=== PATIENT | male | born 1970 | race Caucasian/White ===

== ENCOUNTER 2016-03-15 12:32 | Emergency (ER) | payer MEDICARE, MEDICAID ==
[2016-03-15 12:45] VITALS: BMI 40.7
[2016-03-15 13:41] LABS: BLOOD UREA NITROGEN 8 MG/DL (9-20); CALCIUM 8.8 MG/DL (8.4-10.2); CALCULATED OSMOLALITY 255 MOs/Kg (270-290); CHLORIDE 93 mEq/L (98-107); GLUCOSE 118 MG/DL (70-99); SODIUM LEVEL 133 mEq/L (137-146); TOTAL PROTEIN 7.9 G/DL (6.3-8.2)
[2016-03-15 13:44] LABS: PARTIAL THROMB. TIME 25.3 SEC (22-35)
[2016-03-15 13:54] LABS: SEG NEUTROPHIL 66 % (45-76)
--- NOTE | 2016-03-15 14:18 | DIRPT ---
CLINICAL DATA: Seizure EXAM: PORTABLE CHEST 1 VIEW COMPARISON: 01/05/2014 FINDINGS: Normal heart size. Lungs are very under aerated and grossly clear. No pneumothorax. IMPRESSION: No active disease. Electronically Signed By: Ziyad Villatoro M.D. On: 03/15/2016 14:16
--- NOTE | 2016-03-15 14:26 | EDPRACDOC ---
<CrowCurt Fransico - Last Filed: 03/15/16 15:19> - General Information Information Source: Patient, Family Mode Of Arrival: Car - History of Present Illness Onset: Today HPI: Patient reports he started with a headache last night, has a hx of migraines, went to congregation this AM - felt very sick, had one episode of nausea/vomiting. States he had a seizure shortly after the nausea/vomiting episode. Patient denies being injured - he was sitting when he had his seizure. Patient reports bilateral upper back pain after a fall last week on the ice, denies CP, SOB, fever, chills, ear pain or sore throat. Patient has had cough/congestion this weekend as well. No abdominal pain, no neck pain. Location: Reports: Generalized Pain Quality: Reports: Mild Modifying Factors: improves with: Rest Associated Signs and Symptoms: Reports: Occasional Headache, Nausea/Vomiting, Seizures. Denies: Confusion, Facial Pain, Loss of Consciousness, Nasal Drainage , Sinus Infection, Stiff Neck, Vision Changes, Weakness <Mariely Bear - Last Filed: 03/15/16 15:25> - General Information Chief Complaint: Headache Stated Complaint: SEIZURES ROLON VOMITING Time Seen by Provider: 03/15/16 13:41 Home Medications: Home Medications Carbamazepine [Tegretol] 400 mg PO QID 01/19/13 Divalproex Sodium [Depakote ER] 1,000 mg PO QID 01/19/13 Lacosamide [Vimpat] 100 mg PO BID 01/19/13 Amoxicillin/Potassium Clav [Augmentin 875-125 Tablet] 1 each PO BID #20 tablet 03/15/16 Ondansetron HCl [Zofran] 4 mg PO Q8H PRN #15 tab 03/15/16 Allergies/Adverse Reactions: Allergies Allergy/AdvReac Type Severity Reaction Status Date / Time methylphenidate HCl Allergy Intermediate See Verified 03/15/16 12:45 [From Ritalin] Comments topiramate [From Topamax] Allergy Dizziness Verified 03/15/16 12:45 ED Past Medical History - History Reviewed Yes Nurses notes reviewed and agree except as marked - Patient Medical History Neurological History: Reports: Seizures (01/12/14 [facility]), Epilepsy Psychological History: Denies: Depression Systemic History: Denies: Cancer - Family Medical History Reports: Hypertension (PARENTS), Diabetes (PARENTS), Stroke (MOTHER), Cardiac Disorders (MOTHER) - Social Medical History Smoking Status: Never smoker ETOH: None Substance Abuse: None Lives In: Home <Mariely Bear - Last Filed: 03/15/16 15:25> EDM Review of Systems - Review of Systems ROS Negative Except as Marked: Yes All systems reviewed and were negative except as marked Constitutional: No Symptoms Reported Eyes: No Symptoms Reported Ears: No Symptoms Reported Throat: No Symptoms Reported Nose: No Symptoms Reported Mouth: No Symptoms Reported Respiratory: No Symptoms Reported Cardiovascular: No Symptoms Reported Gastrointestinal: Nausea, Vomiting Genitourinary: No Symptoms Reported Neurological: Headache, Seizure. negative: Dizziness, Numbness, Speech Difficulty, Weakness Musculoskeletal: Back <Mariely Bear - Last Filed: 03/15/16 15:25> - Physical Exam Last recorded Vital Signs: Last Vital Signs Temp 97.1 F L 03/15/16 12:39 Pulse 58 L 03/15/16 12:44 Resp 18 03/15/16 12:44 BP 156/81 03/15/16 12:44 Pulse Ox 97 03/15/16 12:44 Oxygen Pulse Oxygen Saturation 97 O2 Device Oxygen Flow Rate Fraction of Inspired Oxygen ( FIO2) <Curt Maria - Last Filed: 03/15/16 15:19> - Physical Exam Constitutional: Alert (Awake), No apparent distress Oriented to: Time, Person, Place Last recorded Vital Signs: Last Vital Signs Temp 97.1 F L 03/15/16 12:39 Pulse 58 L 03/15/16 12:44 Resp 18 03/15/16 12:44 BP 156/81 03/15/16 12:44 Pulse Ox 97 03/15/16 12:44 Oxygen Pulse Oxygen Saturation 97 O2 Device Oxygen Flow Rate Fraction of Inspired Oxygen ( FIO2) - HEENT Head: Normal ( normocephalic) Eye Exam: Normal (PERRL, EOMI, Sclera white) Oropharynx: Normal (Pharynx:Moist without exudate,Gums-no swelling) Nose: No Symptoms Reported (septum midline) Neck: Normal (FROM, trachea at midline) - Respiratory/Cardiovascular Respiratory: Normal - CTA (BBS clear to auscultation without adventitious sounds ) Cardiovascular: Normal (RRR without murmur, gallop or rub) - GI Auscultation: Normal (NABS) Tenderness: Non tender - Musculoskeletal Back: Normal (Non-Tender) Extremities: Normal (Normal tone, Pulses 2+ No cyanosis or edema, FROM) - Integumentary Skin: Normal, Warm, Dry Lymphatics: Normal (no adenopathy) - Neurologic Memory Impaired: Normal Motor Function: Normal (Normal tone, Pulses 2+ No cyanosis or edema, FROM) Mood Description: Normal Thought: Coherent <Mariely Bear M - Last Filed: 03/15/16 15:25> - Results 03/15/16 13:15 03/15/16 13:15 WBC 15.7 xk/uL (3.8-10.8) H 03/15/16 13:15 RBC 5.20 xM/uL (4.70-6.10) 03/15/16 13:15 Hgb 16.4 g/dL (14.0-18.0) 03/15/16 13:15 Hct 47.8 % (42-52) 03/15/16 13:15 MCV 92 fL (80-94) 03/15/16 13:15 MCH 31.5 pg (27-32) 03/15/16 13:15 MCHC 34.2 g/dl (33-36) 03/15/16 13:15 RDW 13.5 % (11.5-14.5) 03/15/16 13:15 Plt Count 366 xk/uL (130-400) 03/15/16 13:15 MPV 8.0 fL (7.4-10.4) 03/15/16 13:15 Neut % (Auto) Cancelled 03/15/16 13:15 Lymph % (Auto) Cancelled 03/15/16 13:15 [place] % (Auto) Cancelled 03/15/16 13:15 Eos % (Auto) Cancelled 03/15/16 13:15 Baso % (Auto) Cancelled 03/15/16 13:15 Absolute Neuts (auto) Cancelled 03/15/16 13:15 Absolute Lymphs (auto) Cancelled 03/15/16 13:15 Seg Neuts % (Manual) 66 % (45-76) 03/15/16 13:15 Band Neutrophils % 3 % (0-5) 03/15/16 13:15 Lymphocytes % (Manual) 19 % (17-44) 03/15/16 13:15 Monocytes % (Manual) 12 % (0-10) H 03/15/16 13:15 Absolute Neutrophils 10.83 xk/uL (1.7-8.2) H 03/15/16 13:15 Absolute Lymphocytes 2.98 xk/uL (0.65-4.75) 03/15/16 13:15 Atypical Lymphocytes Occ 03/15/16 13:15 Platelet Estimate Norm (NORMAL) 03/15/16 13:15 RBC Morphology Norm 03/15/16 13:15 PT 10.0 SEC (9.2-11.2) 03/15/16 13:15 INR 1.0 03/15/16 13:15 APTT 25.3 SEC (22-35) 03/15/16 13:15 Sodium 133 mEq/L (137-146) L 03/15/16 13:15 Potassium 3.7 mEq/L (3.5-5.1) 03/15/16 13:15 Chloride 93 mEq/L (98-107) L 03/15/16 13:15 Carbon Dioxide 26 mMOL/L (22-33) 03/15/16 13:15 Anion Gap 18 mEq/L (8-16) H 03/15/16 13:15 BUN 8 MG/DL (9-20) L 03/15/16 13:15 Creatinine 0.60 MG/DL (0.66-1.25) L 03/15/16 13:15 Estimated GFR (MDRD) > 60 mL/min (>=60) 03/15/16 13:15 Glucose 118 MG/DL (70-99) H 03/15/16 13:15 Calculated Osmolality 255 MOs/Kg (270-290) L 03/15/16 13:15 Calcium 8.8 MG/DL (8.4-10.2) 03/15/16 13:15 Total Bilirubin 0.4 MG/DL (0.2-1.3) 03/15/16 13:15 AST 32 IU/L (17-59) 03/15/16 13:15 ALT 23 IU/L (21-72) 03/15/16 13:15 Alkaline Phosphatase 85 IU/L (38-126) 03/15/16 13:15 Troponin I < 0.01 ng/mL (<.04) 03/15/16 13:15 Total Protein 7.9 G/DL (6.3-8.2) 03/15/16 13:15 Albumin 4.3 G/DL (3.5-5.0) 03/15/16 13:15 Valproic Acid 101.0 MCG/ML (50-100) H 03/15/16 13:15 Lab Results 03/15/16 03/15/16 03/15/16 13:15 13:15 13:15 WBC 15.7 H RBC 5.20 Hgb 16.4 Hct 47.8 MCV 92 MCH 31.5 MCHC 34.2 RDW 13.5 Plt Count 366 MPV 8.0 Neut % (Auto) Cancelled Lymph % (Auto) Cancelled [place] % (Auto) Cancelled Eos % (Auto) Cancelled Baso % (Auto) Cancelled Absolute Neuts (auto) Cancelled Absolute Lymphs (auto) Cancelled Seg Neuts % (Manual) 66 Band Neutrophils % 3 Lymphocytes % (Manual) 19 Monocytes % (Manual) 12 H Absolute Neutrophils 10.83 H Absolute Lymphocytes 2.98 Atypical Lymphocytes Occ Platelet Estimate Norm RBC Morphology Norm PT 10.0 INR 1.0 APTT 25.3 Sodium 133 L Potassium 3.7 Chloride 93 L Carbon Dioxide 26 Anion Gap 18 H BUN 8 L Creatinine 0.60 L Estimated GFR (MDRD) > 60 Glucose 118 H Calculated Osmolality 255 L Calcium 8.8 Total Bilirubin 0.4 AST 32 ALT 23 Alkaline Phosphatase 85 Troponin I < 0.01 Total Protein 7.9 Albumin 4.3 Valproic Acid 101.0 H - Additional Information MD NOTE SEEN AND EXAMINED; NO NECK PAIN WITH FLEXION. COLD AND COUGH FOR A WEEK. SEIZURE EARLIER. HX OF SAME BEFORE AND ON MEDS. <Curt Maria - Last Filed: 03/15/16 15:19> - Re-evaluation Re-evaluation 1 Re-evaluation Time: 15:14 Re-evaluation: Discussed results with patient, negative CT scan and CXR - sinusitis. Bloodwork unremarkable. Patient without CP, SOB, patient has had upper back pain since a fall 1 wk ago, good ROM, slight pain with palpation. - Results 03/15/16 13:15 03/15/16 13:15 WBC 15.7 xk/uL (3.8-10.8) H 03/15/16 13:15 RBC 5.20 xM/uL (4.70-6.10) 03/15/16 13:15 Hgb 16.4 g/dL (14.0-18.0) 03/15/16 13:15 Hct 47.8 % (42-52) 03/15/16 13:15 MCV 92 fL (80-94) 03/15/16 13:15 MCH 31.5 pg (27-32) 03/15/16 13:15 MCHC 34.2 g/dl (33-36) 03/15/16 13:15 RDW 13.5 % (11.5-14.5) 03/15/16 13:15 Plt Count 366 xk/uL (130-400) 03/15/16 13:15 MPV 8.0 fL (7.4-10.4) 03/15/16 13:15 Neut % (Auto) Cancelled 03/15/16 13:15 Lymph % (Auto) Cancelled 03/15/16 13:15 [place] % (Auto) Cancelled 03/15/16 13:15 Eos % (Auto) Cancelled 03/15/16 13:15 Baso % (Auto) Cancelled 03/15/16 13:15 Absolute Neuts (auto) Cancelled 03/15/16 13:15 Absolute Lymphs (auto) Cancelled 03/15/16 13:15 Seg Neuts % (Manual) 66 % (45-76) 03/15/16 13:15 Band Neutrophils % 3 % (0-5) 03/15/16 13:15 Lymphocytes % (Manual) 19 % (17-44) 03/15/16 13:15 Monocytes % (Manual) 12 % (0-10) H 03/15/16 13:15 Absolute Neutrophils 10.83 xk/uL (1.7-8.2) H 03/15/16 13:15 Absolute Lymphocytes 2.98 xk/uL (0.65-4.75) 03/15/16 13:15 Atypical Lymphocytes Occ 03/15/16 13:15 Platelet Estimate Norm (NORMAL) 03/15/16 13:15 RBC Morphology Norm 03/15/16 13:15 PT 10.0 SEC (9.2-11.2) 03/15/16 13:15 INR 1.0 03/15/16 13:15 APTT 25.3 SEC (22-35) 03/15/16 13:15 Sodium 133 mEq/L (137-146) L 03/15/16 13:15 Potassium 3.7 mEq/L (3.5-5.1) 03/15/16 13:15 Chloride 93 mEq/L (98-107) L 03/15/16 13:15 Carbon Dioxide 26 mMOL/L (22-33) 03/15/16 13:15 Anion Gap 18 mEq/L (8-16) H 03/15/16 13:15 BUN 8 MG/DL (9-20) L 03/15/16 13:15 Creatinine 0.60 MG/DL (0.66-1.25) L 03/15/16 13:15 Estimated GFR (MDRD) > 60 mL/min (>=60) 03/15/16 13:15 Glucose 118 MG/DL (70-99) H 03/15/16 13:15 Calculated Osmolality 255 MOs/Kg (270-290) L 03/15/16 13:15 Calcium 8.8 MG/DL (8.4-10.2) 03/15/16 13:15 Total Bilirubin 0.4 MG/DL (0.2-1.3) 03/15/16 13:15 AST 32 IU/L (17-59) 03/15/16 13:15 ALT 23 IU/L (21-72) 03/15/16 13:15 Alkaline Phosphatase 85 IU/L (38-126) 03/15/16 13:15 Troponin I < 0.01 ng/mL (<.04) 03/15/16 13:15 Total Protein 7.9 G/DL (6.3-8.2) 03/15/16 13:15 Albumin 4.3 G/DL (3.5-5.0) 03/15/16 13:15 Valproic Acid 101.0 MCG/ML (50-100) H 03/15/16 13:15 Lab Results 03/15/16 03/15/16 03/15/16 13:15 13:15 13:15 WBC 15.7 H RBC 5.20 Hgb 16.4 Hct 47.8 MCV 92 MCH 31.5 MCHC 34.2 RDW 13.5 Plt Count 366 MPV 8.0 Neut % (Auto) Cancelled Lymph % (Auto) Cancelled [place] % (Auto) Cancelled Eos % (Auto) Cancelled Baso % (Auto) Cancelled Absolute Neuts (auto) Cancelled Absolute Lymphs (auto) Cancelled Seg Neuts % (Manual) 66 Band Neutrophils % 3 Lymphocytes % (Manual) 19 Monocytes % (Manual) 12 H Absolute Neutrophils 10.83 H Absolute Lymphocytes 2.98 Atypical Lymphocytes Occ Platelet Estimate Norm RBC Morphology Norm PT 10.0 INR 1.0 APTT 25.3 Sodium 133 L Potassium 3.7 Chloride 93 L Carbon Dioxide 26 Anion Gap 18 H BUN 8 L Creatinine 0.60 L Estimated GFR (MDRD) > 60 Glucose 118 H Calculated Osmolality 255 L Calcium 8.8 Total Bilirubin 0.4 AST 32 ALT 23 Alkaline Phosphatase 85 Troponin I < 0.01 Total Protein 7.9 Albumin 4.3 Valproic Acid 101.0 H - EKG EKG #1 EKG Time: 13:26 -: Yes EKG interpreted by me Rate: bpm: 54 Rhythm: SB Block: RBBB (Incomplete) ST: Nonsp <Mariely Bear - Last Filed: 03/15/16 15:25> <Curt Maria - Last Filed: 03/15/16 15:19> Decision Time to Discharge: 15:18 - Departure Disposition: Home Education/Counseling Given To: Patient, Family Member Education/Counseling Given Regarding: Diagnosis, Treatment, Prognosis, Follow Up <Mariely Bear - Last Filed: 03/15/16 15:25> - Departure Condition: Stable Final Diagnosis: Seizure Headache Qualifiers: Headache type: other headache syndrome Qualified Code(s): G44.89 - Other headache syndrome Sinusitis Qualifiers: Sinusitis location: unspecified location Chronicity: acute Recurrence: non- recurrent Qualified Code(s): J01.90 - Acute sinusitis, unspecified Instructions: Headache, Headache,FAQ's Referrals: Mariely Tadeo PA [Primary Care Provider] - One Week Prescriptions: Amoxicillin/Potassium Clav [Augmentin 875-125 Tablet] 1 each PO BID #20 tablet Ondansetron HCl [Zofran] 4 mg PO Q8H PRN #15 tab PRN Reason: Nausea/Vomiting Additional Instructions: Please followup with PCP in 1-2days. Return to ED if symptoms worsen/change or concerns arise. Continue at home medications as directed.
--- NOTE | 2016-03-15 14:53 | DIRPT ---
CLINICAL DATA: Seizure with frontal headache earlier today EXAM: CT HEAD WITHOUT CONTRAST TECHNIQUE: Contiguous axial images were obtained from the base of the skull through the vertex without intravenous contrast. COMPARISON: None. FINDINGS: The ventricles are normal in size and configuration. There is no intracranial mass, hemorrhage, extra-axial fluid collection, or midline shift. Kramer-white compartments appear normal. No acute infarct evident. The bony calvarium appears intact. The mastoid air cells are clear. There is opacification with retention cysts in each maxillary antrum. There is opacification of multiple ethmoid air cells bilaterally as well as mild mucosal thickening in each anterior sphenoid sinus. No intraorbital lesions are appreciable. IMPRESSION: Paranasal sinus disease at multiple sites. No intracranial mass, hemorrhage, or focal kramer -white compartment lesions/acute appearing infarct. Electronically Signed By: Obdulio Choe III, M.D. On: 03/15/2016 14:50
[2016-03-15] MEDS ORDERED: ONDANSETRON HCL 4 MG/2 ML VIAL IV ONE (15:16)
[2016-03-15] MEDS ORDERED: ACETAMINOPHEN 325 MG/TAB TABLET PO ONE (15:16)
[2016-03-15 15:54] VITALS: BP 142/74; PULSE 74; TEMP 97.5
== END 2016-03-15 15:51 | disposition home or self-care (01) ==
LOC: ED 12:32
DX: G44.89 Other headache syndrome (principal); J01.90 Acute sinusitis, unspecified; R56.9 Unspecified convulsions
CPT/HCPCS: 36415; 70450; 71010; 80053; 80164; 84484; 85007; 85027; 85610; 85730; 93005; 96374; 99284; A9270; J2405; J3490